=== PATIENT | female | born 1970 | race American Indian/Alaskan Native ===

== ENCOUNTER 2021-11-03 10:28 | Inpatient (IN) | payer MEDICARE ==
[2021-11-03] MEDS ORDERED: ACETAMINOPHEN 325 MG TAB PO ONE (10:42)
--- NOTE | 2021-11-03 11:26 | XRay Report ---
CHEST 2 VIEWS INDICATION: Upper Respiratory Infection. COMPARISON: None FINDINGS: SUPPORT DEVICES: None. HEART: Within normal limits. LUNGS/PLEURA: Mild patchy right greater than left basilar airspace disease as well as anterior right upper lobe. No pleural effusion. No pneumothorax. ADDITIONAL FINDINGS: None. IMPRESSION: 1. Lung findings as above. Signer Name: Nestor To MD Signed: 11/03/2021 11:21 AM Workstation Name: [id number]
[2021-11-03] MEDS ORDERED: SODIUM CHLORIDE 0.9% 1000 ML 1,000 ML IV ONE ×3 (16:30→23:15)
[2021-11-03] MEDS ORDERED: cefTRIAXone/NS 1 GM/50 ML 1 GM/50 ML BAG IV ONE (16:30)
[2021-11-03] MEDS ORDERED: AZITHROMYCIN/NS 500 MG/250 ML 500 MG/250 ML BAG IV ONE (16:30)
--- NOTE | 2021-11-03 16:35 | Emergency Department Report ---
HPI - General Chief Complaint: Upper Respiratory Infection Time Seen by Provider: 11/03/21 16:12 - HPI HPI: Room 39 The patient is a 51-year-old female present with chief complaint of cough and congestion. Patient states symptoms began 2 days ago after accidentally spraying a shield cleaner in her face she states she developed nasal congestion and rhinorrhea. Patient states she shortly developed a cough occasionally productive of yellow sputum and increased work of breathing. Patient denies noticing she had a fever at home but admitted to [facility]. Patient states she has not been vaccinated against COVID. Patient denies have any any known sick cont act ED Past Medical Hx - Past Medical History Previous Medical History?: Yes Hx Hypertension: Yes - Surgical History Past Surgical History?: No - Family History Family history: no significant - Social History Smoking Status: Former Smoker (None since 2008) Substance Use Type: None (Denies illicit drug use), Alcohol (Occasional) ED Review of Systems ROS: Stated complaint: SINUS Other details as noted in HPI Constitutional: chills. denies: fever Eyes: denies: eye pain ENT: congestion Respiratory: cough, other (Increased work of breathing) Cardiovascular: denies: chest pain Endocrine: no symptoms reported Gastrointestinal: denies: abdominal pain Genitourinary: denies: dysuria Musculoskeletal: denies: back pain Neurological: denies: headache Physical Exam - Physical Exam Vital Signs: Vital Signs 11/03/21 10:40 Temperature 101.2 F H Pulse Rate 128 H Respiratory 18 Rate Blood Pressure 116/84 [Left] O2 Sat by Pulse 100 Oximetry Physical Exam: GENERAL: The patient is well-developed well-nourished female lying on stretcher not appearing to be in acute distress. [] HEENT: Normocephalic. Atraumatic. Extraocular motions are intact. Patient has moist mucous membranes. NECK: Supple. Trachea midline CHEST/LUNGS: Clear to auscultation. There is no respiratory distress noted. HEART/CARDIOVASCULAR: Regular. There is tachycardia. There is no gallop rub or murmur. ABDOMEN: Abdomen is soft, nontender. Patient has normal bowel sounds. There is no abdominal distention. SKIN: There is no rash. There is no edema. There is no diaphoresis. NEURO: The patient is awake, alert, and oriented. The patient is cooperative. The patient has no focal neurologic deficits. The patient has normal speech. GCS 15 MUSCULOSKELETAL: There is no evidence of acute injury. ED Course Vital Signs 11/03/21 10:40 Temperature 101.2 F H Pulse Rate 128 H Respiratory 18 Rate Blood Pressure 116/84 [Left] O2 Sat by Pulse 100 Oximetry ED Medical Decision Making - Lab Data Result diagrams: 11/03/21 18:02 11/03/21 18:02 Laboratory Tests 11/03/21 11/03/21 11/03/21 17:48 18:02 18:02 WBC 8.8 RBC 4.51 Hgb 13.7 Hct 41.2 MCV 91 MCH 30 MCHC 33 RDW 15.5 H Plt Count 250 Add Manual Diff Complete Total Counted 100 Seg Neuts % (Manual) 68.0 Band Neutrophils % 2.0 Lymphocytes % (Manual) 20.0 Reactive Lymphs % (Man) 0 Monocytes % (Manual) 10.0 H Eosinophils % (Manual) 0 Basophils % (Manual) 0 Metamyelocytes % 0 Myelocytes % 0 Promyelocytes % 0 Blast Cells % 0 Nucleated RBC % Not Reportable Seg Neutrophils # Man 6.0 Band Neutrophils # 0.2 Lymphocytes # (Manual) 1.8 Abs React Lymphs (Man) 0.0 Monocytes # (Manual) 0.9 H Eosinophils # (Manual) 0.0 Basophils # (Manual) 0.0 Metamyelocytes # 0.0 Myelocytes # 0.0 Promyelocytes # 0.0 Blast Cells # 0.0 WBC Morphology Not Reportable Hypersegmented Neuts Not Reportable Hyposegmented Neuts Not Reportable Hypogranular Neuts Not Reportable Smudge Cells Not Reportable Toxic Granulation Not Reportable Toxic Vacuolation Not Reportable Dohle Bodies Not Reportable Pelger-Huet Anomaly Not Reportable Samson Rods Not Reportable Platelet Estimate Consistent w auto Clumped Platelets Not Reportable Plt Clumps, EDTA Not Reportable Large Platelets Not Reportable Giant Platelets Not Reportable Platelet Satelliting Not Reportable Plt Morphology Comment Not Reportable RBC Morphology Normal Dimorphic RBCs Not Reportable Polychromasia Not Reportable Hypochromasia Not Reportable Poikilocytosis Not Reportable Anisocytosis Not Reportable Microcytosis Not Reportable Macrocytosis Not Reportable Spherocytes Not Reportable Pappenheimer Bodies Not Reportable Sickle Cells Not Reportable Target Cells Not Reportable Tear Drop Cells Not Reportable Ovalocytes Not Reportable Helmet Cells Not Reportable Macario-[place]ijer[place] Bodies Not Reportable [place] Rings Not Reportable [place] Cells Not Reportable Bite Cells Not Reportable Crenated Cell Not Reportable Elliptocytes Not Reportable Acanthocytes (Spur) Not Reportable Rouleaux Not Reportable Hemoglobin C Crystals Not Reportable Schistocytes Not Reportable Malaria parasites Not Reportable Glynn Bodies Not Reportable Hem Pathologist Commnt No Sodium 134 L Potassium 4.5 Chloride 103.0 Carbon Dioxide 17 L Anion Gap 19 BUN 20 H Creatinine 1.0 Estimated GFR > 60 BUN/Creatinine Ratio 20 Glucose 97 Lactic Acid 0.80 Calcium 8.6 Total Bilirubin 1.20 AST 74 H ALT 49 Alkaline Phosphatase 76 Total Protein 9.3 H Albumin 3.6 L Albumin/Globulin Ratio 0.6 - Radiology Data Radiology results: report reviewed (Chest x-ray), image reviewed (Chest x-ray) [facility] [address] [place] [address] XRay Report Signed Patient: CHILANGO MITCHELL MR#: [id number] 4 : 1970 Acct:[id number] Age/Sex: 51 / F ADM Date: 11/03/21 Loc: ED Attending Dr: Ordering Physician: JOSSIE TEMPLE MD Date of Service: 11/03/21 Procedure(s): XR chest routine 2V Accession Number(s): [id number] cc: ED MD MAVERICK Fluoro Time In Minutes: CHEST 2 VIEWS INDICATION: Upper Respiratory Infection. COMPARISON: None FINDINGS: SUPPORT DEVICES: None. HEART: Within normal limits. LUNGS/PLEURA: Mild patchy right greater than left basilar airspace disease as well as anterior right upper lobe. No pleural effusion. No pneumothorax. ADDITIONAL FINDINGS: None. IMPRESSION: 1. Lung findings as above. Signer Name: Nestor To MD Signed: 11/03/2021 11:21 AM Workstation Name: [id number] Transcribed By: JW Dictated By: Nestor To MD Electronically Authenticated By: Nestor To MD Signed Date/Time: 11/03/21 112 DD/ 1121 TD/TT: - Differential Diagnosis COVID-pneumonia, bilateral pneumonia, and bronchitis, Critical care attestation.: If time is entered above; I have spent that time in minutes in the direct care of this critically ill patient, excluding procedure time. ED Disposition Clinical Impression: Suspected COVID-19 virus infection, Tachycardia Disposition: 09 ADMITTED INPATIENT Is pt being admited?: Yes Does the pt Need Aspirin: No Condition: Fair Referrals: JONELLE CRENSHAW MD [Primary Care Provider] - 3-5 Days Time of Disposition: 23:40 (Care transferred to hospitalist (Dr. Noriega))
[2021-11-03 19:26] LABS: Alanine Aminotransferase 49 units/L (7-56); Albumin 3.6 g/dL (3.9-5); BUN/Creatinine Ratio 20; Blood Urea Nitrogen 20 mg/dL (7-17); Calcium 8.6 mg/dL (8.4-10.2); Hemolysis Index 98
[2021-11-03 19:57] LABS: Hematocrit 41.2 % (30.3-42.9); Hemoglobin 13.7 gm/dl (10.1-14.3); Mean Corpuscular HGB Conc 33 % (30-34); Mean Corpuscular Volume 91 fl (79-97); Platelet Count 250 K/mm3 (140-440); Red Blood Count 4.51 M/mm3 (3.65-5.03); Red Cell Distribution Width 15.5 % (13.2-15.2)
[2021-11-03 21:16] LABS: Band Neutrophils # (Manual) 0.2 K/mm3; Basophils % (Manual) 0 % (0.0-1.8); Eosinophils % (Manual) 0 % (0.0-4.3); Total Cells Counted 100
[2021-11-03 21:17] LABS: Platelet Estimate Consistent w Auto; RBC Morphology Normal
[2021-11-03] MEDS ORDERED: SODIUM CHLORIDE 0.9% 1000 ML 1,000 ML ONE (23:16)
[2021-11-03] MEDS ORDERED: HYDROcodone/ACETAMINOPHEN 5-325 MG TAB PO PRN (23:41)
[2021-11-03] MEDS ORDERED: ONDANSETRON 4 MG/2 ML INJ IV PRN (23:41)
[2021-11-04] MEDS ORDERED: ACETAMINOPHEN 325 MG TAB PO PRN (00:51)
[2021-11-04] MEDS ORDERED: MORPHINE 4 MG/1 ML INJ IV PRN (00:51)
[2021-11-04] MEDS ORDERED: MORPHINE 2 MG/1 ML INJ IV PRN (00:51)
[2021-11-04] MEDS ORDERED: ONDANSETRON 4 MG/2 ML INJ IV PRN (00:51)
[2021-11-04] MEDS ORDERED: ALBUTEROL 2.5 MG/3 ML NEBU IH PRN (00:51)
--- NOTE | 2021-11-04 00:57 | History and Physical Report ---
History of Present Illness Date of examination: 11/04/21 Date of admission: 11/03/21 23:41 Chief complaint: Nasal congestion and rhinorrhea History of present illness: 51-year-old female with history of hypertension was brought to the emergency room because of cough and congestion. Patient states symptoms began 2 days ago after accidentally spraying a engine cleaner in her face she states she developed nasal congestion and rhinorrhea. Patient states she shortly developed a cough occasionally productive of yellow sputum and increased work of breathing. Patient denies noticing she had a fever at home but admitted to [facility]. Patient states she has not been vaccinated against COVID. Patient denies have any any known sick contact In the emergency room patient chest x-ray shows mild patchy right and left basilar airspace disease as well as anterior right upper lobe. No pleural effusion no pneumothorax Past History Past Medical History: hypertension Past Surgical History: No surgical history Social history: smoking Family history: hypertension Medications and Allergies Allergies Allergy/AdvReac Type Severity Reaction Status Date / Time moxifloxacin [From Avelox] Allergy Swelling Verified 11/03/21 10:40 Active Meds: Active Medications Acetaminophen (Acetaminophen 325 Mg Tab) 650 mg PO Q4H PRN PRN Reason: Pain MILD(1-3)/Fever >100.5/OLEA Hydrocodone Bitart/Acetaminophen (Hydrocodone/Acetaminophen 5-325 Mg Tab) 2 each PO Q6H PRN PRN Reason: Pain, Moderate (4-6) Ondansetron HCl (Ondansetron 4 Mg/2 Ml Inj) 4 mg IV Q8H PRN PRN Reason: Nausea And Vomiting Sodium Chloride (Sodium Chloride 0.9% 10 Ml Flush Syringe) 10 ml IV BID TAMARA Sodium Chloride (Sodium Chloride 0.9% 10 Ml Flush Syringe) 10 ml IV PRN PRN PRN Reason: LINE FLUSH Review of Systems All systems: negative Constitutional: fever, chills, other (Nasal congestion and rhinorrhea) Respiratory: cough, cough with sputum, shortness of breath, dyspnea on exertion Exam - Constitutional Vitals: Temp Pulse Resp BP Pulse Ox 98.7 F 116 H 14 116/74 98 11/03/21 18:22 11/04/21 00:26 11/04/21 00:26 11/04/21 00:26 11/04/21 00:26 General appearance: Present: no acute distress, well-nourished - EENT Eyes: Present: PERRL ENT: hearing intact, clear oral mucosa - Neck Neck: Present: supple, normal ROM - Respiratory Respiratory effort: normal Respiratory: bilateral: CTA - Cardiovascular Heart Sounds: Present: S1 & S2. Absent: rub, click - Extremities Extremities: pulses symmetrical, No edema Peripheral Pulses: within normal limits - Abdominal General gastrointestinal: Present: soft, non-tender, non-distended, normal bowel sounds Female genitourinary: Present: normal - Integumentary Integumentary: Present: clear, warm, dry - Musculoskeletal Musculoskeletal: gait normal, strength equal bilaterally - Psychiatric Psychiatric: appropriate mood/affect, intact judgment & insight - Neurologic Neurologic: CNII-XII intact, moves all extremities Results - Labs CBC & Chem 7: 11/03/21 18:02 11/03/21 18:02 Labs: Laboratory Last Values WBC 8.8 K/mm3 (4.5-11.0) 11/03/21 18: RBC 4.51 M/mm3 (3.65-5.03) 11/03/21 18:02 Hgb 13.7 gm/dl (10.1-14.3) 11/03/21 18:02 Hct 41.2 % (30.3-42.9) 11/03/21 18:02 MCV 91 fl (79-97) 11/03/21 18:02 MCH 30 pg (28-32) 11/03/21 18:02 MCHC 33 % (30-34) 11/03/21 18:02 RDW 15.5 % (13.2-15.2) H 11/03/21 18:02 Plt Count 250 K/mm3 (140-440) 11/03/21 18:02 Add Manual Diff Complete 11/03/21 18: Total Counted 100 11/03/21 18:02 Seg Neuts % (Manual) 68.0 % (40.0-70.0) 11/03/21 18:02 Band Neutrophils % 2.0 % 11/03/21 18:02 Lymphocytes % (Manual) 20.0 % (13.4-35.0) 11/03/21 18:02 Reactive Lymphs % (Man) 0 % 11/03/21 18:02 Monocytes % (Manual) 10.0 % (0.0-7.3) H 11/03/21 18:02 Eosinophils % (Manual) 0 % (0.0-4.3) 11/03/21 18:02 Basophils % (Manual) 0 % (0.0-1.8) 11/03/21 18:02 Metamyelocytes % 0 % 11/03/21 18:02 Myelocytes % 0 % 11/03/21 18:02 Promyelocytes % 0 % 11/03/21 18:02 Blast Cells % 0 % 11/03/21 18:02 Nucleated RBC % Not Reportable 11/03/21 18:02 Seg Neutrophils # Man 6.0 K/mm3 (1.8-7.7) 11/03/21 18:02 Band Neutrophils # 0.2 K/mm3 11/03/21 18:02 Lymphocytes # (Manual) 1.8 K/mm3 (1.2-5.4) 11/03/21 18:02 Abs React Lymphs (Man) 0.0 K/mm3 11/03/21 18:02 Monocytes # (Manual) 0.9 K/mm3 (0.0-0.8) H 11/03/21 18:02 Eosinophils # (Manual) 0.0 K/mm3 (0.0-0.4) 11/03/21 18:02 Basophils # (Manual) 0.0 K/mm3 (0.0-0.1) 11/03/21 18:02 Metamyelocytes # 0.0 K/mm3 11/03/21 18:02 Myelocytes # 0.0 K/mm3 11/03/21 18:02 Promyelocytes # 0.0 K/mm3 11/03/21 18:02 Blast Cells # 0.0 K/mm3 11/03/21 18:02 WBC Morphology Not Reportable 11/03/21 18:02 Hypersegmented Neuts Not Reportable 11/03/21 18:02 Hyposegmented Neuts Not Reportable 11/03/21 18:02 Hypogranular Neuts Not Reportable 11/03/21 18:02 Smudge Cells Not Reportable 11/03/21 18:02 Toxic Granulation Not Reportable 11/03/21 18:02 Toxic Vacuolation Not Reportable 11/03/21 18:02 Dohle Bodies Not Reportable 11/03/21 18:02 Pelger-Huet Anomaly Not Reportable 11/03/21 18:02 Samson Rods Not Reportable 11/03/21 18:02 Platelet Estimate Consistent w auto 11/03/21 18:02 Clumped Platelets Not Reportable 11/03/21 18:02 Plt Clumps, EDTA Not Reportable 11/03/21 18:02 Large Platelets Not Reportable 11/03/21 18:02 Giant Platelets Not Reportable 11/03/21 18:02 Platelet Satelliting Not Reportable 11/03/21 18:02 Plt Morphology Comment Not Reportable 11/03/21 18:02 RBC Morphology Normal 11/03/21 18:02 Dimorphic RBCs Not Reportable 11/03/21 18:02 Polychromasia Not Reportable 11/03/21 18:02 Hypochromasia Not Reportable 11/03/21 18:02 Poikilocytosis Not Reportable 11/03/21 18:02 Anisocytosis Not Reportable 11/03/21 18:02 Microcytosis Not Reportable 11/03/21 18:02 Macrocytosis Not Reportable 11/03/21 18:02 Spherocytes Not Reportable 11/03/21 18:02 Pappenheimer Bodies Not Reportable 11/03/21 18:02 Sickle Cells Not Reportable 11/03/21 18:02 Target Cells Not Reportable 11/03/21 18:02 Tear Drop Cells Not Reportable 11/03/21 18:02 Ovalocytes Not Reportable 11/03/21 18:02 Helmet Cells Not Reportable 11/03/21 18:02 Macario-[place] Bodies Not Reportable 11/03/21 18:02 [place] Rings Not Reportable 11/03/21 18:02 [place] Cells Not Reportable 11/03/21 18:02 Bite Cells Not Reportable 11/03/21 18:02 Crenated Cell Not Reportable 11/03/21 18:02 Elliptocytes Not Reportable 11/03/21 18:02 Acanthocytes (Spur) Not Reportable 11/03/21 18:02 Rouleaux Not Reportable 11/03/21 18:02 Hemoglobin C Crystals Not Reportable 11/03/21 18:02 Schistocytes Not Reportable 11/03/21 18:02 Malaria parasites Not Reportable 11/03/21 18:02 Glynn Bodies Not Reportable 11/03/21 18:02 Hem Pathologist Commnt No 11/03/21 18:02 Sodium 134 mmol/L (137-145) L 11/03/21 18:02 Potassium 4.5 mmol/L (3.6-5.0) 11/03/21 18:02 Chloride 103.0 mmol/L (98-107) 11/03/21 18:02 Carbon Dioxide 17 mmol/L (22-30) L 11/03/21 18:02 Anion Gap 19 mmol/L 11/03/21 18:02 BUN 20 mg/dL (7-17) H 11/03/21 18:02 Creatinine 1.0 mg/dL (0.6-1.2) 11/03/21 18:02 Estimated GFR > 60 ml/min 11/03/21 18:02 BUN/Creatinine Ratio 20 % 11/03/21 18:02 Glucose 97 mg/dL (65-100) 11/03/21 18:02 Lactic Acid 0.80 mmol/L (0.7-2.0) 11/03/21 17:48 Calcium 8.6 mg/dL (8.4-10.2) 11/03/21 18:02 Total Bilirubin 1.20 mg/dL (0.1-1.2) 11/03/21 18:02 AST 74 units/L (5-40) H 11/03/21 18:02 ALT 49 units/L (7-56) 11/03/21 18:02 Alkaline Phosphatase 76 units/L (35-129) 11/03/21 18:02 Total Protein 9.3 g/dL (6.3-8.2) H 11/03/21 18:02 Albumin 3.6 g/dL (3.9-5) L 11/03/21 18:02 Albumin/Globulin Ratio 0.6 % 11/03/21 18:02 Microbiology: Microbiology 11/03/21 18:02 Peripheral/Venous Blood Culture - Preliminary Culture in Progress 11/03/21 18:02 Peripheral/Venous Blood Culture - Preliminary Culture in Progress - Imaging and Cardiology Chest x-ray: report reviewed Assessment and Plan VTE prophylaxis?: Mechanical Plan of care discussed with patient/family: Yes - Patient Problems (1) Pneumonia Current Visit: Yes Status: Acute Plan to address problem: Admit the patient to the medical floor. Oxygen by nasal cannula 3 L/min. DuoNeb by nebulizer every 4 hours. Albuterol via nebulizer every 4 hours. Rocephin 2 g IV daily. Zithromax 500 mg p.o. daily. We will do the blood cultures sputum culture. Follow COVID PCR. Recheck CBC in the morning. Consult infectious disease if needed (2) Hypertension Current Visit: Yes Status: Acute Plan to address problem: Hydralazine 10 mg IV every 6 hours as needed. We will continue the home medication (3) Suspected COVID-19 virus infection Current Visit: Yes Status: Acute Plan to address problem: Oxygen by nasal cannula 3 L/min. DuoNeb by nebulizer every 4 hours. Albuterol via nebulizer every 4 hours. Rocephin 2 g IV daily. Zithromax 500 mg p.o. daily. We will do the blood cultures sputum culture. Follow COVID PCR. Recheck CBC in the morning. Consult infectious disease if needed (4) Tachycardia Current Visit: Yes Status: Acute Plan to address problem: Patient get to 3 L of IV fluid. We continue to monitor the patient closely (5) DVT prophylaxis Current Visit: Yes Status: Acute Plan to address problem: SCD for DVT prophylaxis. Pepcid 20 mg p.o. twice daily for GI prophylaxis. Patient is a full code
[2021-11-04] MEDS ORDERED: hydrALAZINE 20 MG/1 ML INJ IV PRN (00:58)
[2021-11-04] MEDS: IPRATROPIUM/ALBUTEROL SULFATE 3 ML AMPUL.NEB IH SCH ×4 (02:47→21:23)
[2021-11-04] MEDS: ACETAMINOPHEN 325 MG TAB PO PRN ×2 (06:14→22:57)
--- NOTE | 2021-11-04 08:34 | Progress Note ---
Assessment and Plan Assessment and plan: 51-year-old female with history of hypertension was brought to the emergency room because of cough and congestion. Patient states symptoms began 2 days ago after accidentally spraying a car cleaner in her face she states she developed nasal congestion and rhinorrhea. Patient states she shortly developed a cough occasionally productive of yellow sputum and increased work of breathing. Patient denies noticing she had a fever at home but admitted to [facility]. Patient states she has not been vaccinated against COVID. Patient denies have any any known sick contact In the emergency room patient chest x-ray shows mild patchy right and left basilar airspace disease as well as anterior right upper lobe. No pleural effusion no pneumothorax Cultures COVID PCR negative, blood cultures in process Sepsis likely secondary to bilateral pneumonia: Fever with Tmax of 102.5, Tachycardia, Acute hypoxic respiratory failure resolved Metabolic Acidosis Hypertension Nonvaccinated patient for COVID-19. Counseling provided to the patient on the importance of vaccination she verbalized understanding DVT prophylaxis Plan of care Advised patient to continue antibiotics in house while trying to get in contact with her housing community to ensure her rent is paid. Monitor cultures I consulted ID today and discussed with them they will see the patient Continue empiric antibiotics per recommendation by ID Patient did denies any history of anxiety resources information provided to her. DVT and GI prophylaxis Inpatient Justification * Risk of adverse events associated with worsening signs & symptoms of principle problem and up to . Patient still with significant fever of 102.5 T-max * Medical noncompliance evident: * Risk of adverse events related to severe illness up to and including * Treatment requiring a hospital setting: * Current post hospital plan of care: Discharge home History Interval history: Patient seen and examined no acute distress she reports that she is anxious because she has been in the hospital and has heart rents due. She thinks that that is why her heart rate this Hospitalist Physical - Physical exam Narrative exam: VITAL SIGNS: Reviewed. GENERAL: The patient appears normally developed, Vital signs as documented. HEAD: No signs of head trauma. EYES: Pupils are equal. Extraocular motions intact. EARS: Hearing grossly intact. MOUTH: Oropharynx is normal. NECK: No adenopathy, no JVD. CHEST: Chest with clear breath sounds bilaterally. No wheezes, rales, or rhonchi. CARDIAC: Tachycardia otherwise regular rhythm. S1 and S2, without murmurs, gallops, or rubs. VASCULAR: No Edema. Peripheral pulses normal and equal in all extremities. ABDOMEN: Soft, non tender and non distended. No rebound or guarding, and no masses palpated. Bowel Sounds normal. MUSCULOSKELETAL: Good range of motion of all major joints. Extremities without clubbing, cyanosis or edema. NEUROLOGIC EXAM: Alert and oriented x 3 No focal sensory or strength deficits. Speech normal. Follows commands. PSYCHIATRIC: Mood normal. SKIN: detail exam as documented in skin assessment - Constitutional Vitals: Temp Pulse Resp BP Pulse Ox 102.5 F H 111 H 19 120/75 100 11/04/21 05:52 11/04/21 05:52 11/04/21 05:52 11/04/21 05:52 11/04/21 05:52 General appearance: Present: no acute distress, well-nourished Results - Labs CBC & Chem 7: 11/03/21 18:02 11/03/21 18:02 Labs: Laboratory Last Values WBC 8.8 K/mm3 (4.5-11.0) 11/03/21 18:02 RBC 4.51 M/mm3 (3.65-5.03) 11/03/21 18:02 Hgb 13.7 gm/dl (10.1-14.3) 11/03/21 18:02 Hct 41.2 % (30.3-42.9) 11/03/21 18:02 MCV 91 fl (79-97) 11/03/21 18:02 MCH 30 pg (28-32) 11/03/21 18:02 MCHC 33 % (30-34) 11/03/21 18:02 RDW 15.5 % (13.2-15.2) H 11/03/21 18:02 Plt Count 250 K/mm3 (140-440) 11/03/21 18:02 Add Manual Diff Complete 11/03/21 18: Total Counted 100 11/03/21 18:02 Seg Neuts % (Manual) 68.0 % (40.0-70.0) 11/03/21 18:02 Band Neutrophils % 2.0 % 11/03/21 18:02 Lymphocytes % (Manual) 20.0 % (13.4-35.0) 11/03/21 18:02 Reactive Lymphs % (Man) 0 % 11/03/21 18:02 Monocytes % (Manual) 10.0 % (0.0-7.3) H 11/03/21 18:02 Eosinophils % (Manual) 0 % (0.0-4.3) 11/03/21 18:02 Basophils % (Manual) 0 % (0.0-1.8) 11/03/21 18:02 Metamyelocytes % 0 % 11/03/21 18:02 Myelocytes % 0 % 11/03/21 18:02 Promyelocytes % 0 % 11/03/21 18:02 Blast Cells % 0 % 11/03/21 18:02 Nucleated RBC % Not Reportable 11/03/21 18:02 Seg Neutrophils # Man 6.0 K/mm3 (1.8-7.7) 11/03/21 18:02 Band Neutrophils # 0.2 K/mm3 11/03/21 18:02 Lymphocytes # (Manual) 1.8 K/mm3 (1.2-5.4) 11/03/21 18:02 Abs React Lymphs (Man) 0.0 K/mm3 11/03/21 18:02 Monocytes # (Manual) 0.9 K/mm3 (0.0-0.8) H 11/03/21 18:02 Eosinophils # (Manual) 0.0 K/mm3 (0.0-0.4) 11/03/21 18:02 Basophils # (Manual) 0.0 K/mm3 (0.0-0.1) 11/03/21 18:02 Metamyelocytes # 0.0 K/mm3 11/03/21 18:02 Myelocytes # 0.0 K/mm3 11/03/21 18:02 Promyelocytes # 0.0 K/mm3 11/03/21 18:02 Blast Cells # 0.0 K/mm3 11/03/21 18:02 WBC Morphology Not Reportable 11/03/21 18:02 Hypersegmented Neuts Not Reportable 11/03/21 18:02 Hyposegmented Neuts Not Reportable 11/03/21 18:02 Hypogranular Neuts Not Reportable 11/03/21 18:02 Smudge Cells Not Reportable 11/03/21 18:02 Toxic Granulation Not Reportable 11/03/21 18:02 Toxic Vacuolation Not Reportable 11/03/21 18:02 Dohle Bodies Not Reportable 11/03/21 18:02 Pelger-Huet Anomaly Not Reportable 11/03/21 18:02 Samson Rods Not Reportable 11/03/21 18:02 Platelet Estimate Consistent w auto 11/03/21 18:02 Clumped Platelets Not Reportable 11/03/21 18:02 Plt Clumps, EDTA Not Reportable 11/03/21 18:02 Large Platelets Not Reportable 11/03/21 18:02 Giant Platelets Not Reportable 11/03/21 18:02 Platelet Satelliting Not Reportable 11/03/21 18:02 Plt Morphology Comment Not Reportable 11/03/21 18:02 RBC Morphology Normal 11/03/21 18:02 Dimorphic RBCs Not Reportable 11/03/21 18:02 Polychromasia Not Reportable 11/03/21 18:02 Hypochromasia Not Reportable 11/03/21 18:02 Poikilocytosis Not Reportable 11/03/21 18:02 Anisocytosis Not Reportable 11/03/21 18:02 Microcytosis Not Reportable 11/03/21 18:02 Macrocytosis Not Reportable 11/03/21 18:02 Spherocytes Not Reportable 11/03/21 18:02 Pappenheimer Bodies Not Reportable 11/03/21 18:02 Sickle Cells Not Reportable 11/03/21 18:02 Target Cells Not Reportable 11/03/21 18:02 Tear Drop Cells Not Reportable 11/03/21 18:02 Ovalocytes Not Reportable 11/03/21 18:02 Helmet Cells Not Reportable 11/03/21 18:02 Macario-[place] Bodies Not Reportable 11/03/21 18:02 [place] Rings Not Reportable 11/03/21 18:02 Beth Cells Not Reportable 11/03/21 18:02 Bite Cells Not Reportable 11/03/21 18:02 Crenated Cell Not Reportable 11/03/21 18:02 Elliptocytes Not Reportable 11/03/21 18:02 Acanthocytes (Spur) Not Reportable 11/03/21 18:02 Rouleaux Not Reportable 11/03/21 18:02 Hemoglobin C Crystals Not Reportable 11/03/21 18:02 Schistocytes Not Reportable 11/03/21 18:02 Malaria parasites Not Reportable 11/03/21 18:02 Glynn Bodies Not Reportable 11/03/21 18:02 Hem Pathologist Commnt No 11/03/21 18:02 Sodium 134 mmol/L (137-145) L 11/03/21 18:02 Potassium 4.5 mmol/L (3.6-5.0) 11/03/21 18:02 Chloride 103.0 mmol/L (98-107) 11/03/21 18:02 Carbon Dioxide 17 mmol/L (22-30) L 11/03/21 18:02 Anion Gap 19 mmol/L 11/03/21 18:02 BUN 20 mg/dL (7-17) H 11/03/21 18:02 Creatinine 1.0 mg/dL (0.6-1.2) 11/03/21 18:02 Estimated GFR > 60 ml/min 11/03/21 18:02 BUN/Creatinine Ratio 20 % 11/03/21 18:02 Glucose 97 mg/dL (65-100) 11/03/21 18:02 Lactic Acid 0.80 mmol/L (0.7-2.0) 11/03/21 17:48 Calcium 8.6 mg/dL (8.4-10.2) 11/03/21 18:02 Total Bilirubin 1.20 mg/dL (0.1-1.2) 11/03/21 18:02 AST 74 units/L (5-40) H 11/03/21 18:02 ALT 49 units/L (7-56) 11/03/21 18:02 Alkaline Phosphatase 76 units/L (35-129) 11/03/21 18:02 Total Protein 9.3 g/dL (6.3-8.2) H 11/03/21 18:02 Albumin 3.6 g/dL (3.9-5) L 11/03/21 18:02 Albumin/Globulin Ratio 0.6 % 11/03/21 18:02 Microbiology: Microbiology 11/03/21 18:02 Peripheral/Venous Blood Culture - Preliminary Culture in Progress 11/03/21 18:02 Peripheral/Venous Blood Culture - Preliminary Culture in Progress Whitaker/IV: Voiding Method Toilet Active Medications - Current Medications Current Medications: Generic Name Dose Route Start Last Admin Trade Name Freq PRN Reason Stop Dose Admin Acetaminophen 650 mg 11/03/21 23:41 11/04/21 06:14 Acetaminophen 325 Mg Tab PO 650 mg Q4H PRN Administration Pain MILD(1-3)/Fever >100.5/OLEA Hydrocodone Bitart/Acetaminophen 2 each 11/03/21 23:41 Hydrocodone/Acetaminophen 5-325 Mg Tab PO Q6H PRN Pain, Moderate (4-6) Albuterol 2.5 mg 11/04/21 00:51 Albuterol 2.5 Mg/3 Ml Nebu IH Q4HRT PRN Shortness Of Breath Albuterol/Ipratropium 1 ampul 11/04/21 02:00 11/04/21 02:47 Ipratropium/Albuterol Sulfate 3 Ml Ampul.Neb IH 1 ampul Q6HRT TAMARA Administration Azithromycin 500 mg 11/04/21 22:00 Azithromycin 250 Mg Tab PO 11/07/21 22:01 QHS [facility] Protocol Famotidine 20 mg 11/04/21 10:00 Famotidine 20 Mg Tab PO BID [facility] Hydralazine HCl 10 mg 11/04/21 00:58 Hydralazine 20 Mg/1 Ml Inj IV Q6H PRN Blood Pressure Ceftriaxone Sodium 2 gm in 100 mls @ 200 mls/hr 11/04/21 18:00 Rocephin/Ns 2 Gm/100 Ml IV 11/07/21 23:59 Q24H [facility] Protocol Morphine Sulfate 2 mg 11/04/21 00:51 Morphine 2 Mg/1 Ml Inj IV Q4H PRN Pain, Moderate (4-6) Morphine Sulfate 4 mg 11/04/21 00:51 Morphine 4 Mg/1 Ml Inj IV Q4H PRN Pain , Severe (7-10) Ondansetron HCl 4 mg 11/03/21 23:41 Ondansetron 4 Mg/2 Ml Inj IV Q8H PRN Nausea And Vomiting Sodium Chloride 10 ml 11/04/21 10:00 Sodium Chloride 0.9% 10 Ml Flush Syringe IV BID TAMARA Sodium Chloride 10 ml 11/03/21 23:41 Sodium Chloride 0.9% 10 Ml Flush Syringe IV PRN PRN LINE FLUSH
[2021-11-04] MEDS: FAMOTIDINE 20 MG TAB PO SCH ×3 (08:58→22:49)
--- NOTE | 2021-11-04 10:57 | Consultation ---
History of Present Illness - Reason for Consult Consult date: 11/04/21 pneumonia, fever Requesting physician: AIDE MCKEON - History of Present Illness The patient is a 51-year-old female with hypertension was admitted to the hospital with cough and congestion going on for about 2 days prior to admission. She is unvaccinated against COVID-19. She also had a fever, came to the ER, chest x-ray showed bilateral pneumonia. T-max of 102.5 F. Labs showed normal WBC at 8.8, platelets 250, AST 74, creatinine 1.0. COVID-19 PCR came back negative. Feeling slightly better. Now on room air, states that she needed oxygen overnight. Review of Systems: General: Fever HEENT: no new visual disturbance Respiratory: Cough and congestion Cardiovascular: No chest pain, syncope Gastrointestinal: No nausea, vomiting or diarrhea Genitourinary: No dysuria or hematuria Musculoskeletal: No new or worsening neck pain or back pain Neurologic: No headaches, seizures Hematologic: No easy bruising or bleeding Endocrine: No night sweats or acute weight loss Skin: negative for rash, jaundice Psychiatric: No suicidal or homicidal ideation Past History Past Medical History: hypertension Past Surgical History: No surgical history Social history: smoking Family history: hypertension Medications and Allergies Allergies Allergy/AdvReac Type Severity Reaction Status Date / Time moxifloxacin [From Avelox] Allergy Swelling Verified 11/03/21 10:40 Home Medications Medication Instructions Recorded Confirmed Last Taken Type No Known Home Medications [No 11/04/21 11/04/21 Unknown History Reported Home Medications] Active Meds: Active Medications Acetaminophen (Acetaminophen 325 Mg Tab) 650 mg PO Q4H PRN PRN Reason: Pain MILD(1-3)/Fever >100.5/OLEA Last Admin: 11/04/21 06:14 Dose: 650 mg Hydrocodone Bitart/Acetaminophen (Hydrocodone/Acetaminophen 5-325 Mg Tab) 2 each PO Q6H PRN PRN Reason: Pain, Moderate (4-6) Albuterol (Albuterol 2.5 Mg/3 Ml Nebu) 2.5 mg IH Q4HRT PRN PRN Reason: Shortness Of Breath Albuterol/Ipratropium (Ipratropium/Albuterol Sulfate 3 Ml Ampul.Neb) 1 ampul IH Q6HRT TAMARA Last Admin: 11/04/21 08:49 Dose: 1 ampul Azithromycin (Azithromycin 250 Mg Tab) 500 mg PO QHS [facility]; Protocol Stop: 11/07/21 22:01 Famotidine (Famotidine 20 Mg Tab) 20 mg PO BID [facility] Last Admin: 11/04/21 08:58 Dose: 20 mg Hydralazine HCl (Hydralazine 20 Mg/1 Ml Inj) 10 mg IV Q6H PRN PRN Reason: Blood Pressure Ceftriaxone Sodium (Rocephin/Ns 2 Gm/100 Ml) 2 gm in 100 mls @ 200 mls/hr IV Q24H [facility]; Protocol Stop: 11/07/21 23:59 Sodium Chloride (Nacl 0.9% 1000 Ml) 1,000 mls @ 125 mls/hr IV DIRECT TAMARA Morphine Sulfate (Morphine 2 Mg/1 Ml Inj) 2 mg IV Q4H PRN PRN Reason: Pain, Moderate (4-6) Morphine Sulfate (Morphine 4 Mg/1 Ml Inj) 4 mg IV Q4H PRN PRN Reason: Pain , Severe (7-10) Ondansetron HCl (Ondansetron 4 Mg/2 Ml Inj) 4 mg IV Q8H PRN PRN Reason: Nausea And Vomiting Sodium Chloride (Sodium Chloride 0.9% 10 Ml Flush Syringe) 10 ml IV BID [facility] Sodium Chloride (Sodium Chloride 0.9% 10 Ml Flush Syringe) 10 ml IV PRN PRN PRN Reason: LINE FLUSH Physical Examination - Physical Exam Narrative exam: Physical Exam: Constitutional: Alert, cooperative. No acute distress Head, Ears, Nose: Normocephalic, atraumatic. External ears, nose normal Eyes: Conjunctivae/corneas clear. No icterus. No ptosis. Neck: Supple, no meningeal signs Cardiovascular: S1, S2 + Respiratory: Few right-sided crackles GI: Soft, non-tender; bowel sounds normal. No peritoneal signs Musculoskeletal: No pedal edema, no cyanosis. Skin: No rash or abscess Hem/Lymphatic: No palpable cervical or supraclavicular nodes. No lymphangitis Psych: Mood ok. Affect normal Neurological: Awake, alert, oriented. No gross abnormality - Constitutional Vitals: Vital Signs Temp Pulse Resp BP Pulse Ox 102.5 F H 111 H 21 120/75 100 11/04/21 05:52 11/04/21 08:50 11/04/21 08:50 11/04/21 05:52 11/04/21 05:52 Temperature -Last 24 Hours Temperature 102.5 F Temperature 98.8 F Temperature 98.7 F Results - Labs CBC & Chem 7: 11/03/21 18:02 11/03/21 18:02 Labs: Abnormal lab results 11/03/21 11/03/21 Range/Units 18:02 18:02 RDW 15.5 H (13.2-15.2) % Monocytes % (Manual) 10.0 H (0.0-7.3) % Monocytes # (Manual) 0.9 H (0.0-0.8) K/mm3 Sodium 134 L (137-145) mmol/L Carbon Dioxide 17 L (22-30) mmol/L BUN 20 H (7-17) mg/dL AST 74 H (5-40) units/L Total Protein 9.3 H (6.3-8.2) g/dL Albumin 3.6 L (3.9-5) g/dL - Imaging and Cardiology Chest x-ray: report reviewed, image reviewed (R sided pneumonia +) Assessment and Plan Cultures: SARS CoV2 PCR: Negative 11/03/2021 blood culture: In process A/P: 51-year-old female with hypertension was admitted to the hospital with cough and congestion going on for about 2 days prior to admission: #Bilateral pneumonia: COVID-negative. #Acute hypoxic respiratory failure: Needed oxygen overnight, now on room air. Recs: -COVID-19 PCR is negative -Continue ceftriaxone, azithromycin for 5 days. If improved, discharged on p.o. Ceftin and azithromycin to complete 5 days -Sputum culture ordered, in case she is able to produce some Andres Blanco MD, FACP, [facility] O: [phone] F: [phone] C: [phone]
[2021-11-04] MEDS ORDERED: guaiFENesin DM 200/20 MG ORAL LIQD 10 ML PO PRN (15:01)
[2021-11-04] MEDS: SODIUM CHLORIDE 0.9% 1000 ML 1,000 ML IV SCH (17:14)
[2021-11-04] MEDS ORDERED: cefTRIAXone/NS 2 GM/100 ML 2 GM/100 ML BAG IV SCH (18:00)
[2021-11-04] MEDS ORDERED: AZITHROMYCIN 250 MG TAB PO SCH (22:00)
[2021-11-05] MEDS: SODIUM CHLORIDE 0.9% 1000 ML 1,000 ML IV SCH (05:44)
[2021-11-05 05:45] LABS: Basophils # (Auto) 0.1 K/mm3 (0.0-0.1); Basophils % (Auto) 1.5 % (0.0-1.8); Eosinophils % (Auto) 0.9 % (0.0-4.3); Hematocrit 37.2 % (30.3-42.9); Hemoglobin 11.6 gm/dl (10.1-14.3); Lymphocytes # (Auto) 1.6 K/mm3 (1.2-5.4); Lymphocytes % (Auto) 33.1 % (13.4-35.0); Mean Corpuscular HGB Conc 31 % (30-34); Mean Corpuscular Volume 92 fl (79-97); Monocytes # (Auto) 0.4 K/mm3 (0.0-0.8); Monocytes % (Auto) 8.6 % (0.0-7.3); Platelet Count 244 K/mm3 (140-440); Red Blood Count 4.04 M/mm3 (3.65-5.03); Red Cell Distribution Width 15.8 % (13.2-15.2)
[2021-11-05 06:00] LABS: Blood Urea Nitrogen 8 mg/dL (7-17); Calcium 7.9 mg/dL (8.4-10.2); Hemolysis Index 0
[2021-11-05 06:02] LABS: BUN/Creatinine Ratio 11
[2021-11-05] MEDS: FAMOTIDINE 20 MG TAB PO SCH (09:19)
[2021-11-05] MEDS: IPRATROPIUM/ALBUTEROL SULFATE 3 ML AMPUL.NEB IH SCH (09:33)
--- NOTE | 2021-11-05 09:40 | Progress Note ---
Assessment and Plan Cultures: SARS CoV2 PCR: Negative 11/03/2021 blood culture: no growth A/P: 51-year-old female with hypertension was admitted to the hospital with cough and congestion going on for about 2 days prior to admission: #Bilateral pneumonia: COVID-negative. #Acute hypoxic respiratory failure: Needed oxygen overnight, now on room air. #?sinusitis: gives h/o recent sinus procedure by ENT. Advised outpt follow up. Recs: -Continue ceftriaxone, azithromycin for 5 days. Patient is having difficulty swallowing azithromycin tablet, switched to IV -Upon discharge, she would prefer a liquid/suspension rather than tablets/capsules. Switch to Liquid/suspension Augmentin 875 mg twice daily for 4 days -Sputum culture not submitted yet Andres Blanco MD, FACP, [facility] O: [phone] F: [phone] C: [phone] Subjective Date of service: 11/05/21 Interval history: Low-grade temperatures. Feeling slightly better. Complains of blood-tinged nasal discharge. On room air. Discussed with RN. Has not submitted sputum sample yet. Patient states she is having difficulty swallowing azithromycin tablets. Objective - Exam Narrative Exam: Physical Exam: Constitutional: Alert, cooperative. No acute distress Head, Ears, Nose: Normocephalic, atraumatic. External ears, nose normal Eyes: Conjunctivae/corneas clear. No icterus. No ptosis. Neck: Supple, no meningeal signs Cardiovascular: S1, S2 + Respiratory: AE fair b/l GI: Soft, non-tender; bowel sounds normal. No peritoneal signs Musculoskeletal: No pedal edema, no cyanosis. Skin: No rash or abscess Hem/Lymphatic: No palpable cervical or supraclavicular nodes. No lymphangitis Psych: Mood ok. Affect normal Neurological: Awake, alert, oriented. No gross abnormality - Constitutional Vitals: Vital Signs Temp Pulse Resp BP Pulse Ox 98.9 F 104 H 16 121/71 100 11/05/21 04:30 11/05/21 08:00 11/05/21 08:00 11/05/21 04:30 11/05/21 04:30 Temperature -Last 24 Hours Temperature 98.9 F Temperature 100.2 F Temperature 100.6 F Temperature 98.7 F - Labs CBC & Chem 7: 09/08/22 05:01 11/05/21 05:01 Labs: Abnormal lab results 11/05/21 11/05/21 Range/Units 05:01 05:01 RDW 15.8 H (13.2-15.2) % [place] % (Auto) 8.6 H (0.0-7.3) % Chloride 109.7 H (98-107) mmol/L Carbon Dioxide 20 L (22-30) mmol/L Calcium 7.9 L (8.4-10.2) mg/dL
--- NOTE | 2021-11-05 10:07 | Discharge Summary ---
Providers - Providers Date of Admission: 11/03/21 23:41 Attending physician: AIDE MCKEON MD 11/04/21 08:35 Consult to Physician [CONS] Routine Comment: Consulting Provider: JF LAWS Physician Instructions: Reason For Exam: PENUMONIA WITH SEPSIS Primary care physician: JONELLE CRENSHAW Hospitalization Reason for admission: shortenss of breath Condition: Stable Hospital course: 51-year-old female with history of hypertension was brought to the emergency room because of cough and congestion. Patient states symptoms began 2 days ago after accidentally spraying a commercial cleaner in her face she states she developed nasal congestion and rhinorrhea. Patient states she shortly developed a cough occasionally productive of yellow sputum and increased work of breathing. Patient denies noticing she had a fever at home but admitted to [facility]. Patient states she has not been vaccinated against COVID. Patient denies have any any known sick contact In the emergency room patient chest x-ray shows mild patchy right and left basilar airspace disease as well as anterior right upper lobe. No pleural effusion no pneumothorax Cultures COVID PCR negative, blood cultures in process 11/05: Discussed with infectious disease recommending Augmentin to complete therapy. Suspension and liquid formation will be prescribed. I did discuss with the patient extensively and I agree with recommendation from the ID physician that the patient should follow-up with the ENT. In respect to possible sinusitis and recent procedure done. Patient verbalizes understanding. No new fever at this time. No white count noted On further discussion with the patient she did have dynamization of the esophagus done as she has a history of strictures. As a result she sticks with GI soft diet and liquids. She will continue to follow-up with her GI doctor and establish relationship.. Plan of care Advised patient to continue antibiotics in house while trying to get in contact with her housing community to ensure her rent is paid. Monitor cultures I consulted ID today and discussed with them they will see the patient Continue empiric antibiotics per recommendation by ID Patient did denies any history of anxiety resources information provided to her. DVT and GI prophylaxis Sepsis likely secondary to bilateral pneumonia: Fever with Tmax of 102.5, Tachycardia, Acute hypoxic respiratory failure resolved Metabolic Acidosis Sinusitis Hypertension Nonvaccinated patient for COVID-19. Counseling provided to the patient on the importance of vaccination she verbalized understanding Disposition: 01 HOME / SELF CARE / HOMELESS Final Discharge Diagnosis (Prints w/discharge instructions): Sepsis likely secondary to bilateral pneumonia: Fever with Tmax of 102.5, Tachycardia,. Acute hypoxic respiratory failure resolved. Metabolic Acidosis. Sinusitis. Hypertension. Nonvaccinated patient for COVID-19. Time spent for discharge: 35 minutes Core Measure Documentation - Palliative Care Palliative Care/ Comfort Measures: Not Applicable - Core Measures Any of the following diagnoses?: none Exam - Physical Exam Narrative exam: VITAL SIGNS: Reviewed. GENERAL: The patient appears normally developed, Vital signs as documented. HEAD: No signs of head trauma. EYES: Pupils are equal. Extraocular motions intact. EARS: Hearing grossly intact. MOUTH: Oropharynx is normal. NECK: No adenopathy, no JVD. CHEST: Chest with clear breath sounds bilaterally. No wheezes, rales, or rhonchi. CARDIAC: Tachycardia otherwise regular rhythm. S1 and S2, without murmurs, gallops, or rubs. VASCULAR: No Edema. Peripheral pulses normal and equal in all extremities. ABDOMEN: Soft, non tender and non distended. No rebound or guarding, and no masses palpated. Bowel Sounds normal. MUSCULOSKELETAL: Good range of motion of all major joints. Extremities without clubbing, cyanosis or edema. NEUROLOGIC EXAM: Alert and oriented x 3 No focal sensory or strength deficits. Speech normal. Follows commands. PSYCHIATRIC: Mood normal. SKIN: detail exam as documented in skin assessment - Constitutional Vitals: Temp Pulse Resp BP Pulse Ox 98.9 F 104 H 16 121/71 97 11/05/21 04:30 11/05/21 08:00 11/05/21 08:00 11/05/21 04:30 11/05/21 09:37 Plan Activity: advance as tolerated, fall precautions Diet: low fat Special Instructions: record daily weights, record daily BP diary Follow up with: [facility] [Referring] - 7 Days PRATIBHA FABIAN MD [Staff Physician] - 7 Days KAYLAN DUBOIS MD [Referring] - 7 Days Forms: Work/School Release Form Prescriptions: Amoxicillin/K Clav Oral Liqd [Augmentin 250-62.5 mg/5 ml] 17.5 ml PO BID 5 Days #1 bottle guaiFENesin DM [Guaifenesin Dm Syrup] 10 ml PO Q4H PRN #100 oral.liqd PRN Reason: Cough
[2021-11-05 13:34] VITALS: BP 127/77
[2021-11-05] MEDS ORDERED: AZITHROMYCIN/NS 500 MG/250 ML 500 MG/250 ML BAG IV SCH (22:00)
== END 2021-11-05 13:40 | disposition home or self-care (01) | DRG 871 ==
LOC: ED 10:28 → 3A 23:41
PROVIDERS: ADMIT Hospitalist; ATTEND Internal Medicine
DX: A41.9 Sepsis, unspecified organism (principal); J18.9 Pneumonia, unspecified organism; J96.01 Acute respiratory failure with hypoxia; Z20.822 Contact with and (suspected) exposure to COVID-19; I10 Essential (primary) hypertension; J32.9 Chronic sinusitis, unspecified; Z88.8 Allergy status to other drugs, medicaments and biological substances; Z82.49 Family history of ischemic heart disease and other diseases of the circulatory system; Z87.891 Personal history of nicotine dependence
CPT/HCPCS: 36415; 71046; 80048; 80053; 82140; 85007; 85025; 87040; 94640; G0378; J0456; J0696; J7030; U0003